=== PATIENT | male | born 2000 | race African-American/Black ===

== ENCOUNTER 2019-12-20 23:45 | Inpatient (IN) | payer SELFPAY ==
[~2019-12-20] VITALS: Ht 162.6 cm; Wt 70.0 kg
[2019-12-20 23:50] VITALS: Ht 162.6 cm; Wt 70.0 kg
--- NOTE | 2019-12-21 | NUR ---
PATIENT CHRIS ORNELAS TO ED ROOM 7 C/O ALOC. PATIENT WAS ON FOUR POINT RESTRAINT FOR THRASHING UPON ARRIVAL. PATIENT IS ALERT AND ORIENTED X1 AND MUMBLING INCOHERENTLY. PATIENT UNABLE TO ANSWER INTERVIEW QUESTIONS. RESPIRATION EVEN AND UNLABORED. NO C/O PAIN. CMS INTACT BILATERAL UPPER AND LOWER EXTREMITIES. DR. SAVAGE AT BEDSIDE TO MSE PATIENT. PATIENT TO BE MEDICATED FOR AGITATION. WILL CONTINUE TO MONITOR. CALL LIGHT WITHIN REACH.
[2019-12-21 00:28] LABS: BASOPHIL % 0.1 % (0-2); PLATELET COUNT 234 x10^3mcL (130-400); RED CELL DISTRIBUTION WIDTH 13.1 % (11.5-14.5)
[2019-12-21 00:37] LABS: CALCIUM 8.8 mg/dL (8.5-10.1); CARBON DIOXIDE 27.2 mmol/L (21-32); CHLORIDE SERUM 104 mmol/L (98-107); CREATININE SERUM 1.3 mg/dL (0.7-1.3); GFR1 > 60 mL/min; GLUCOSE SERUM 128 mg/dL (74-106); POTASSIUM SERUM 3.8 mmol/L (3.5-5.1); SODIUM SERUM 142 mmol/L (136-145)
[2019-12-21 00:41] LABS: ALBUMIN 4.2 g/dL (3.4-5.0); ALKALINE PHOSPHATASE 68 U/L (46-116); ALT/SGPT 22 U/L (16-63); AST/SGOT 32 U/L (15-37); BILIRUBIN TOTAL 0.4 mg/dL (0.20-1.00); CHOLESTEROL 154 mg/dL (<200)
--- NOTE | 2019-12-21 02:56 | NUR ---
PT AWAKEN ENOUGH TO ASK TO HAVE HIS ARMS FREED. ABLE TO GET 2 PHONE NUMBERS FROM HIM BUT RECEIVED NO ANSWER FROM EITHER. ASK DR. MUSE TO ASSESS PT FOR REMOVAL OF RESTRAINTS. HE CLEARED PT AND RESTRAINTS WERE REMOVED. PT THEN REQUESTED WATER. IT IS SITTING AT THE BEDSIDE, BUT PT IS ASLEEP AND HAS NOT TOUCHED THE WATER.
--- NOTE | 2019-12-21 06:06 | NUR ---
REPORT WAS CALLED TO [facility] PT TO ROOM 244A
[2019-12-21 06:11] LABS: T3 TOTAL 1.34 ng/mL
[2019-12-21 06:20] LABS: FREE T4 1.1 ng/dL (0.76-1.46); FREE THYROXINE INDEX 2.7 ug/dL (1.4-4.5); T4(THYROXINE) 8.5 ug/dL (4.7-13.3)
--- NOTE | 2019-12-21 06:41 | NUR ---
PT RECIEVED FROM ED NURSE. PT IS RESTING IN BED AT THIS TIME. A/O X4, CALM AND COOPERATIVE. PT REPORTS MINOR PAIN IN THE RIGHT ARM. PT HAS PAPABLE PULSES, NO EDEMA PRESENT AT THIS TIME. PT HAS PINK MUCOSA, NO DRAINAGE OBSERVED. PT REPORTS HE IS ABLE TO SWALLOW. LUNGS SOUNDS, CTA, RMA SP02 100%. PT DENIES SOB. PT DENIES CP OR PALPITATIONS. HEART SOUNDS S1 AND S2 WNL. PT HAS ACTIVE BOWEL SOUNDS. PT DENIES NAUSEA, AND DIZZINESS. PT HAS NO WEAKNESS, ABLE TO AMBULATE. PT IS ABLE TO SELF VOID. SKIN INTACT, SCABS/SCRATCHES ON THE RIGHT ARM. WILL ENDORSE TO DAY SHIFT NURSE.
--- NOTE | 2019-12-21 06:50 | NUR ---
PT REFUSED TO TAKE MRSA TEST OR RECIEVE ANY IV FLUIDS.
[2019-12-21 07:35] VITALS: BP 100/55
--- NOTE | 2019-12-21 08:13 | NUR ---
PATIENT REFUSED TELE MONITORING. EXPLAINED RISKS AND BENEFITS TO THE PATIENT AND STILL REFUSED. DR. VILLELA MADE AWARE. WILL CONTINUE TO MONITOR.
[2019-12-21 08:19] VITALS: BP 128/62
--- NOTE | 2019-12-21 10:30 | NUR ---
DR. HEWITT AND DR. MIKE SPOKE WITH PT AND INFORMED PT IMPORTANCE OF IV FLUIDS, PT STATES WOULD THINK ABOUT HAVING IV FLUIDS, PER PT ASK ME IN A LITTLE BIT. SPOKE WITH PT, PT REFUSING IV ACCESS AND IV FLUIDS, SIGNED REFUSAL FORM, WILL INFORM DR. HEWITT.
--- NOTE | 2019-12-21 11:08 | NUR ---
SPOKE WITH DR. HEWITT REGARDING PT REFUSING IV ACCESS AND IV FLUIDS. NO OTHER ORDERS RECEIVED.
[2019-12-21 12:13] VITALS: BP 114/54
--- NOTE | 2019-12-21 12:26 | NUR ---
Discount pharmacy card and list to low cost medical clinics given to patient.
[2019-12-21 15:38] LABS: microscopic required? NO
--- NOTE | 2019-12-21 15:45 | NUR ---
PT ASKING TO GO HOME. EXPLAINED TO PT HE HAS NOT BEEN CLEARED BY DOCTORS YET. PT STATES "I'M FINE I JUST WANNA GO HOME." EXPLAINED TO PT IF HE LEAVES IT WOULD BE AGAINST MEDICAL ADVICE, PT VERBALIZED UNDERSTANDING. CALLED DR. HEWITT MADE AWARE PT WANTING TO SIGN OUT AMA, PER DR. HEWITT WILL BE IN TO SPEAK WITH PT.
--- NOTE | 2019-12-21 15:49 | NUR ---
PT STATED THAT HE WANTED TO AMMariajose HEWITT MADE AWARE AND WILL SPEAK WITH HIM.
[2019-12-21 15:50] LABS: UA SPECIFIC GRAVITY 1.015 (1.005-1.035); urine erythrocyte NEGATIVE (NEGATIVE)
[2019-12-21 16:18] LABS: AMPHETAMINE QUAL UR NONE DETECTED (See below)
[2019-12-21 17:01] VITALS: BP 112/44
--- NOTE | 2019-12-21 17:11 | NUR ---
DR. MEDEL AT BEDSIDE TO SEE THE PT, DR. MEDEL EXPLAINING IMPORTANCE OF STAYING TO HAVE ECHO DONE D/T ELEVATED TROPONIN. PT NOT WANTING TO STAY IN HOSPITAL. PT ASKING TO SIGN OUT AMA. CALLED DR. HEWITT AND NOTIFIED OF AMA. PT MADE AWARE OF RISK OF SIGNING OUT AMA INCLUDING , PT STILL INSISTENT OF SIGINING OUT AMA, SIGNED FORM. PT AWAITING FOR RIDE.
--- NOTE | 2019-12-21 18:49 | NUR ---
ASKED PT IF FAMILYIS AVAILABLE TO PICK HIM UP, PT STATES "NO THEY NEED TO LOOK FOR A HOTEL FIRST AND ONCE THEY DO THEY WILL COME GET ME." INSTRUCTED PT TO CALL WHEN FAMILY IS HERE, PT VERBALIZED UNDERSTANDING. CHARGE NURSE AWARE. WILL ENDORSE TO RIVET HAMMER MACHINE OPERATOR RN.
--- NOTE | 2019-12-21 19:40 | NUR ---
RECEIVED PATIENT REPORT FROM DAY SHIFT RN. PATIENT IS AAOX4, DENIES KUMAR/DIZZINESS. BREATHING EVEN AND UNLABORED ON RA WITH NO SOB NOTED. DENIES CHEST PAIN/PRESSURE. NO IV ACCESS. PATIENT AMBULATORY. NO ACUTE DISTRESS NOTED. PATIENT SIGNED AMA FORM, PATIENT MADE AWARE OF RISKS OF LEAVING AMA AND CONTINUE TO LEAVE. PATIENT LEFT UNIT ACCOMPANY WITH ICE SCULPTOR VIA WHEEL CHAIR. ALL BELONGINGS WITH PATIENT. ALL QUESTIONS ADDRESSED. VS STABLE BP 117/59 HR 60, 98% ON RA, TEMP 97.8.
== END 2019-12-21 19:45 | disposition left against medical advice (07) | DRG 917 ==
LOC: ED 23:45 → EDBD 23:45 → DU 12-21 05:07
PROVIDERS: Emergency Medicine; ADMIT Family Medicine; ATTEND Family Medicine
DX: T42.4X1A Poisoning by benzodiazepines, accidental (unintentional), initial encounter (principal); G92 Toxic encephalopathy; N17.0 Acute kidney failure with tubular necrosis; I21.4 Non-ST elevation (NSTEMI) myocardial infarction; M62.82 Rhabdomyolysis; Z79.899 Other long term (current) drug therapy; Z79.82 Long term (current) use of aspirin; Y92.89 Other specified places as the place of occurrence of the external cause
CPT/HCPCS: 84439; G0378; G0480; J1630; J2060; Q0092